=== PATIENT | male | born 1930 | race Hispanic/Latino ===

== ENCOUNTER 2018-05-31 16:30 | Emergency (ER) | payer MEDICARE, OTHER ==
--- NOTE | 2018-05-31 17:13 | RAD ---
RADIOGRAPH CHEST 1 VIEW: HISTORY: An 88-year-old male with syncope and collapse. FINDINGS: There are no air space densities, pulmonary edema, pneumothorax, or cardiomegaly. The lateral costop hrenic angles are sharp. IMPRESSION: No acute cardiopulmonary findings. jn [] POS: NESSA
[2018-05-31 17:39] LABS: #Eosinphils 0.1 thou/uL (0.0-0.7); #Lymphocytes 0.9 thou/uL (1.20-3.40); #Monocytes 0.7 thou/uL (0.11-0.59); #Neutrophils 8.3 thou/uL (1.40-6.50); %Basophils 0.1 % (0.0-1.0); %Eosinophils 0.6 % (0.0-10.0); %Lymphocytes 8.8 % (21.0-51.0); %Monocytes 7.5 % (0.0-10.0); %Neutrophils 83.1 % (42.0-75.0); Hemoglobin 14.1 g/dL (14.0-18.0); Mean Corpuscular Hemoglobin 30.8 pg (27.0-31.0); Mean Corpuscular Volume 93.2 fL (78.0-98.0); Mean Platelet Volume 7.6 fL (7.4-10.4); Platelet Count 213 thou/uL (130-400); RBC Distribution Width 12.3 % (11.5-14.5); Red Blood Cell (RBC) Count 4.59 mill/uL (4.70-6.10)
[2018-05-31 17:50] LABS: ALT (SGPT) 11 U/L (8-55); AST (SGOT) 14 U/L (5-34); Albumin 4.1 g/dL (3.4-4.8); Alkaline Phosphatase 51 U/L (40-150); Anion Gap 14 mmol/L (10-20); BUN (Urea Nitrogen) 16 mg/dL (8.4-25.7); Bilirubin, Total 0.8 mg/dL (0.2-1.2); Calc. Creatinine Clearance 0 mL/min (70-130); Calcium 8.7 mg/dL (7.8-10.44); Carbon Dioxide 23 mmol/L (23-31); Chloride 105 mmol/L (98-107); Estimated GFR-MDRD 43; Globulin 2.4 g/dL (2.4-3.5); Glucose 139 mg/dL (83-110); Potassium 4.8 mmol/L (3.5-5.1); Protein, Total 6.5 g/dL (5.8-8.1); Sodium 137 mmol/L (136-145)
--- NOTE | 2018-05-31 18:19 | CT ---
CT BRAIN NONCONTRAST: HISTORY: An 88-year-old male with altered mental status, unresponsive, dizziness, lightheadedness, nausea and vomiting. FINDINGS: There is no midline shift or any other mass effect. There is no evidence of acute intracranial hemor rhage, large cortical infarct, obstructive hydrocephalus, or extraaxial fluid collection. The calvar ium is intact. There is diffuse parenchymal volume loss. There are low attenuation areas in the whi te matter. These are nonspecific, but in a patient of this age, they are probably chronic ischemic w sara matter changes due to microvascular atherosclerosis. IMPRESSION: 1) No acute intracranial findings. 2) Involutional changes and chronic ischemic white matter changes. jn [] POS: NSESA
[2018-05-31 19:06] LABS: Bilirubin Negative (Negative); Blood, Urine Negative (Negative); Clarity CLEAR (Clear); Glucose, Urine (Dipstick) Negative (Negative); Leukocyte Negative (Negative); Nitrite Negative (Negative); Protein, Urine (Dipstick) Negative (Neg-Trace); Specific Gravity, Urine 1.014 (1.002-1.036)
== END 2018-05-31 23:18 | disposition home or self-care (01) ==
LOC: ERS 16:30
DX: I95.1 Orthostatic hypotension (principal); E78.5 Hyperlipidemia, unspecified; I10 Essential (primary) hypertension; M10.9 Gout, unspecified
CPT/HCPCS: 36415; 36416; 70450; 71045; 80053; 81003; 84484; 85025; 85379; 93005; 94760; 96360; 96361

== ENCOUNTER 2018-06-18 11:22 | Observation (INO) | payer MEDICARE, MEDICAID ==
[2018-06-18 12:08] LABS: #Eosinphils 0.1 thou/uL (0.0-0.7); #Lymphocytes 0.9 thou/uL (1.20-3.40); #Monocytes 0.9 thou/uL (0.11-0.59); #Neutrophils 5.9 thou/uL (1.40-6.50); %Basophils 0.2 % (0.0-1.0); %Eosinophils 1.4 % (0.0-10.0); %Lymphocytes 11.9 % (21.0-51.0); %Monocytes 11.1 % (0.0-10.0); %Neutrophils 75.5 % (42.0-75.0); Hemoglobin 14.4 g/dL (14.0-18.0); Mean Corpuscular HGB CONC 32.7 g/dL (32.0-36.0); Mean Corpuscular Hemoglobin 30.3 pg (27.0-31.0); Mean Corpuscular Volume 92.6 fL (78.0-98.0); Mean Platelet Volume 7.6 fL (7.4-10.4); Platelet Count 229 thou/uL (130-400); RBC Distribution Width 12.8 % (11.5-14.5); Red Blood Cell (RBC) Count 4.74 mill/uL (4.70-6.10); White Blood Cell (WBC) Count 7.8 thou/uL (4.8-10.8)
[2018-06-18 12:28] LABS: ALT (SGPT) 16 U/L (8-55); AST (SGOT) 21 U/L (5-34); Albumin 4.3 g/dL (3.4-4.8); Alkaline Phosphatase 67 U/L (40-150); Anion Gap 14 mmol/L (10-20); BUN (Urea Nitrogen) 34 mg/dL (8.4-25.7); Bilirubin, Total 0.7 mg/dL (0.2-1.2); Calc. Creatinine Clearance 0 mL/min (70-130); Calcium 8.8 mg/dL (7.8-10.44); Carbon Dioxide 22 mmol/L (23-31); Chloride 101 mmol/L (98-107); Estimated GFR-MDRD 38; Globulin 2.6 g/dL (2.4-3.5); Glucose 110 mg/dL (83-110); Protein, Total 6.9 g/dL (5.8-8.1); Sodium 132 mmol/L (136-145)
[2018-06-18 12:29] LABS: Acetaminophen Less than 6.0 mcg/mL (10.0-30.0); Alcohol Less than 10 mg/dL (Less than 10); Salicylate Less than 8.0 mg/dL (15.0-30.0)
--- NOTE | 2018-06-18 13:08 | CT ---
HEAD CT NONCONTRAST: COMPARISON: 05/31/2018. INDICATION: Altered mental status. FINDINGS: There is mild parenchymal volume loss. Mild to moderate chronic microvascular ischemic disease is pr esent. Stable prominence of CSF at the posterior fossa may relate to pat cisterna magna. IMPRESSION: No acute intracranial hemorrhage or mass effect. POS: NESSA
[2018-06-18 13:25] LABS: Bilirubin Negative (Negative); Blood, Urine Negative (Negative); Clarity CLEAR (Clear); Glucose, Urine (Dipstick) Negative (Negative); Leukocyte Negative (Negative); Nitrite Negative (Negative); Protein, Urine (Dipstick) Negative (Neg-Trace); Specific Gravity, Urine 1.011 (1.002-1.036)
[2018-06-18 13:38] LABS: Amphetamine Not Detected (NotDetected); Barbiturates Screen Not Detected (NotDetected); Benzodiazepine Screen Not Detected (NotDetected); Cocaine Metabolite Screen Not Detected (NotDetected); Medtox Control Line Valid? VALID (VALID); Medtox Reader # READER 1; Methadone Not Detected (NotDetected); Methamphetamine Not Detected (NotDetected); Opiate Screen Not Detected (NotDetected); Oxycodone Screen Not Detected (NotDetected); Phencyclidine (PCP) Not Detected (NotDetected); THC/Cannabinoid Screen Not Detected (NotDetected); Tricyclic Screen Not Detected (NotDetected)
[2018-06-18] MEDS ORDERED: Aspirin Chewable 81 MG TAB ONE (14:39)
[2018-06-18] MEDS ORDERED: Senokot S 8.6-50 MG TAB PO PRN (16:47)
[2018-06-18] MEDS ORDERED: Acetaminophen 325 MG TAB PO PRN (16:47)
[2018-06-18 17:47] VITALS: BMI 29.0
--- NOTE | 2018-06-18 18:34 | HP ---
PRIMARY CARE PHYSICIAN: Dr. Hanson. CHIEF COMPLAINT: Altered mental status. HISTORY OF PRESENT ILLNESS: Mr. Quintero is a very pleasant 88-year-old male, who presented to the emergency room today at [facility] for altered mental status. Evidently, he was driving in his car this morning around [place], was stopped by police for erratic driving. He reports police sent him to the emergency room to be evaluated. On exam, the patient reports that he was driving, try to find his daughter's or his son's house and got lost. It is unsure of why he was looking for them. Per EMS, he is altered from baseline. The patient reported to the ED physician that he was tired and hungry, has not eaten or drank much today. ER reports that his thoughts were not fluent. He denied any headache, vision changes, chest pain, or shortness of breath. It is unaware of what medication he takes, but he does report taking something for his blood pressure. In the emergency room, he was A and O x0. On exam for admission, he was A and O x2. He can tell me his name, date, he knew where he was, he knew how he got there, remembered events from this morning. His daughter, Sharri, was contacted. Reports that he has been having episodes of more forgetfulness in the last month, goes to see Dr. Hanson, has not been hospitalized either here or at [facility] since 2016. Does report a history of a pulmonary embolism in 2015 and does have an IVC filter. Reports that he has been unwilling to have somebody come in and help him. Reports that he is lonely. Did report that he called her early this morning at 6:30 as he wants to go to the [facility], when she told him that they were not open. He asked for a doctor's visit because he said he did not feel right. He denies any pain. He denies any headache. Daughter does report that he has been to the emergency room a couple of times for fainting. Reports that he does not eat or drink well. They gave him some IV fluids, given something to eat. He feels better and he goes home. Based on altered mental status changes and history, he will be admitted to the observation unit for further management. PAST MEDICAL HISTORY: Per daughter; hypertension, pulmonary embolism, IVC filter, and last discharge summary from this facility September of 2014. He had been admitted for syncope, aortic stenosis, acute gout, iron deficiency anemia, coronary artery disease, multiple gastric arteriovenous malformations, and chronic kidney disease stage 3. He was admitted in September of 2014 for a syncopal episode. He did not receive any anticoagulation in the hospital because when he had an IVC filter into, because he has multiple gastric and duodenal AV malformations and chronic kidney disease. Per [facility] and P in 2015 has a history of chronic systolic heart failure with an ejection fraction of 25%, history of pulmonary embolism, reflux, and dyslipidemia. PAST SURGICAL HISTORY: Includes coronary artery bypass grafting and IVC filter placement. ALLERGIES: UNKNOWN. HOME MEDICATIONS: The patient was unable to provide a list. Family was also unable to provide a list. When we obtain these, they will be updated. SOCIAL HISTORY: He currently lives at home alone. Does have family support. Denies any alcohol, drugs, or smoking. FAMILY HISTORY: Unknown. REVIEW OF SYSTEMS: The patient denied any complaints other than feeling disoriented and confused this morning. Denies anything further. All other systems are reviewed and are negative unless mentioned in the HPI. PHYSICAL EXAMINATION: VITAL SIGNS: Blood pressure 145/77, pulse 87, respirations 18, PO2 is 100% on room air, and temperature is 98.2. CONSTITUTIONAL: The patient appears nontoxic, appears pain free. He is presently confused. HEENT: Head is atraumatic and normocephalic. Eyes; eyelids are normal to inspection. Pupils are equal, round, and reactive to light. There is nystagmus horizontal present. ENT, mucous membranes are moist. Mouth exam is normal. The patient has no teeth present. NECK: Trachea is midline. No JVD is noted. RESPIRATORY: Breath sounds are clear. No signs of respiratory distress. CARDIOVASCULAR: Regular rate and rhythm. Heart sounds are normal. ABDOMEN: Nontender. Bowel sounds are heard. BACK: Normal inspection. No CVA tenderness. EXTREMITIES: Upper extremities, inspection is normal. Radial pulses equal bilaterally. Motor strength is normal. Lower extremities, inspection is normal. Pedal pulses normal bilaterally. Motor strength is normal. NEURO: The patient is awake, verbally responsive. Does answer questions and does follow commands, is aware of the events leading up to presentation to the emergency room. There is no slurred speech. There is no focal motor or sensory deficits. There are no cerebral deficits noted. SKIN: Normal dry in color. Left lower leg is discolored and is larger in size than right. Per the patient and the patient's daughter, this is potentially normal. LABORATORY DATA: EKG in the ER shows a normal sinus rhythm, beats per minute is 71, conduction is normal ST segments, T-waves are normal, axis is normal, does have first-degree AV block. Pertinent labs; white blood cell count is 7.8, hemoglobin 14.4, hematocrit 43.9, and platelet count is 229. Chemistry; sodium was 132, potassium 5.0, chloride 101, carbon dioxide 22, BUN is 34, creatinine is 1.71, estimated GFR is 38, glucose is 110, and calcium is 8.8. Liver enzymes are unremarkable. First 2 troponins are in the undetectable range. Urine is negative. Toxicology for urine is also negative. Plasma alcohol is less than 10. Brain CT, which shows no acute intracranial hemorrhage or mass effect. ASSESSMENT AND PLAN: 1. Altered mental status of unclear etiology. We will obtain an MRI of the brain. Do an echocardiogram, especially in light of the fact the last 1 is documented as low at 15% to 20%. Carotid Dopplers as left leg is discolored and larger than the right. We will obtain an ultrasound of the left lower extremity. 2. We will provide gentle hydration. We will order normal saline at 75 mL/hour. The patient is mildly hyponatremic. 3. Chronic kidney disease. This appears stable. We will monitor. 4. History of hypertension. Once we obtain the patient's home medication list, we will review and restart as needed. 5. Deep venous thrombosis prophylaxis. The patient does have an inferior vena cava filter. We will apply ANGELA hose. 6. Gastrointestinal prophylaxis will be started. 7. History of anemia. We will order iron studies while the patient is admitted. 8. Hospital course will be dependent on clinical findings. Job ID: [id number]
[2018-06-18] MEDS: Sodium Chloride 0.9% 1,000 ML IV SCH (19:00)
[2018-06-18] MEDS ORDERED: Famotidine 20 MG TAB PO SCH (21:00)
--- NOTE | 2018-06-18 22:16 | ULT ---
LEFT LOWER EXTREMITY VENOUS DUPLEX ULTRASOUND INCLUDING COLOR AND SPECTRAL DOPPLER IMAGIN06/18/18 HISTORY: Left lower extremity discoloration and swelling and edema. History of prior DVT. Exam performed from groin to ankle including visualized greater saphenous, common femoral, superficia l femoral, profunda femoral, popliteal, trifurcation, and posterior tibial vein regions. There is pha sic flow at all levels with normal compressibility and normal augmentation. There is mural thrombus n oted at the level of the proximal left superficial femoral vein with some venous luminal narrowing, b ut no evidence of occlusion. There is phasic flow beyond this level. This has more the appearance of old scarring. IMPRESSION: Small focus of mural-like intraluminal thrombus involving the left proximal superficial femoral vein with some minimal luminal narrowing but certainly no evidence for occlusion. There is phasic flow bey ond this level down the left lower extremity. I favor this being old scarring from previous DVT, but certainly given this, the patient would be at a higher risk for redeveloping acute DVT. If that remai ns a clinical concern, then I would certainly suggest short term followup imaging. No convincing evid ence for acute DVT at this time. POS: NESSA
--- NOTE | 2018-06-18 22:21 | ULT ---
BILATERAL CAROTID VASCULAR DUPLEX INCLUDING COLOR AND SPECTRAL DOPPLER IMAGIN06/18/18 HISTORY: Altered mental status. There is visual plaque noted bilaterally. PSV right ICA 93 cm/s. EDV 17 cm/s. ICA/CCA ratio 0.9. PSV left ICA 85 cm/s. EDV 10 cm/s. ICA/CCA ratio of 0.8. Right vertebral flow is antegrade. Left vertebral was not adequately seen. IMPRESSION: Bilateral visual plaque, evidence for atherosclerotic vascular disease. No hemodynamically significan t stenosis. POS: MARIA VICTORIA
[2018-06-19 03:49] LABS: #Eosinphils 0.1 thou/uL (0.0-0.7); #Lymphocytes 1.1 thou/uL (1.20-3.40); #Monocytes 0.9 thou/uL (0.11-0.59); #Neutrophils 3.8 thou/uL (1.40-6.50); %Basophils 0.1 % (0.0-1.0); %Eosinophils 2.4 % (0.0-10.0); %Lymphocytes 18.3 % (21.0-51.0); %Monocytes 14.5 % (0.0-10.0); %Neutrophils 64.7 % (42.0-75.0); Hemoglobin 13.9 g/dL (14.0-18.0); Mean Corpuscular HGB CONC 33.1 g/dL (32.0-36.0); Mean Corpuscular Hemoglobin 30.8 pg (27.0-31.0); Mean Corpuscular Volume 93.1 fL (78.0-98.0); Mean Platelet Volume 7.5 fL (7.4-10.4); Platelet Count 191 thou/uL (130-400); RBC Distribution Width 12.8 % (11.5-14.5); Red Blood Cell (RBC) Count 4.51 mill/uL (4.70-6.10); White Blood Cell (WBC) Count 5.9 thou/uL (4.8-10.8)
[2018-06-19 04:08] LABS: ALT (SGPT) 13 U/L (8-55); AST (SGOT) 16 U/L (5-34); Albumin 3.8 g/dL (3.4-4.8); Alkaline Phosphatase 57 U/L (40-150); Anion Gap 10 mmol/L (10-20); BUN (Urea Nitrogen) 28 mg/dL (8.4-25.7); Bilirubin, Total 0.4 mg/dL (0.2-1.2); Calc. Creatinine Clearance 37 mL/min (70-130); Calcium 8.8 mg/dL (7.8-10.44); Carbon Dioxide 25 mmol/L (23-31); Chloride 104 mmol/L (98-107); Estimated GFR-MDRD 42; Globulin 2.4 g/dL (2.4-3.5); Glucose 159 mg/dL (83-110); Iron 50 ug/dL (65-175); Iron Binding Capacity, Total 301 mcg/dL (261-462); Potassium 4.5 mmol/L (3.5-5.1); Protein, Total 6.2 g/dL (5.8-8.1); Sodium 134 mmol/L (136-145)
[2018-06-19 04:21] LABS: Ferritin 16.78 ng/mL (22-322)
[2018-06-19 04:22] LABS: Vitamin D, 25 Hydroxy 8.7 ng/ml (> 30.0)
[2018-06-19] MEDS: Sodium Chloride 0.9% 1,000 ML IV SCH (07:34)
[2018-06-19] MEDS ORDERED: hydrALAZINE 20 MG/ML VIAL SLOW IVP PRN (07:46)
[2018-06-19] MEDS ORDERED: cloNIDine 0.1 MG TAB PO PRN (07:46)
[2018-06-19 08:14] LABS: Cardiac Risk 3.1 (Less than 4.5)
[2018-06-19] MEDS ORDERED: Lisinopril 2.5 MG TAB PO SCH (09:00)
[2018-06-19] MEDS ORDERED: Finasteride 5 MG TAB PO SCH (09:00)
[2018-06-19] MEDS ORDERED: Non-Formulary Item 1 EACH (Ranitidine Hcl [Ranitidine Hcl] 300 MG) PO SCH (09:00)
[2018-06-19] MEDS ORDERED: Prevnar 13-Val Conj/PF 0.5 ML SYRINGE IM ONE (09:00)
--- NOTE | 2018-06-19 10:10 | PDOC.PN ---
- Subjective Encounter Start Date: 06/19/18 Encounter Start Time: 09:30 Subjective: Examined this morning, was standing on the side of the bed -: Denies complaints, denies remembering see this provider yesterday -: A&O x2, remembered some events from yesterday - Objective Resuscitation Status - Order Detail: 06/18/18 16:47 Resuscitation Status Routine Co-Sign Provider: Resuscitation Status: FULL: Full Resuscitation Discussed with: patient Vital Signs & Weight: Vital Signs (12 hours) Temp Pulse Resp BP BP Pulse Ox 06/19/18 09:22 90 195/93 H 06/19/18 07:50 97.5 F L 90 20 195/93 H 94 L 06/19/18 04:00 97.5 F L 79 19 156/76 H 96 06/19/18 00:00 97.3 F L 87 19 163/79 H 96 Weight Weight 76.884 kg I&O: 06/18/18 06/19/18 06/20/18 06:59 06:59 06:59 Intake Total 1240 Balance 1240 Result Diagrams: 06/19/18 03:40 06/19/18 03:40 Phys Exam - Physical Examination Constitutional: NAD HEENT: PERRLA, moist MMs No teeth in oral cavity Neck: no nodes, no JVD Cardiovascular: no significant murmur Gastrointestinal: soft, non-tender Musculoskeletal: no edema, pulses present Neurological: non-focal, normal sensation Oriented x2, knew he was in a hospital, did not know where. Could recall some of the events from yesterday, knew names of his children Lymphatic: no nodes Psychiatric: normal affect, A&O x 3 Skin: no rash, normal turgor, cap refill <2 seconds Dx/Plan (1) Altered mental status, unspecified Code(s): R41.82 - ALTERED MENTAL STATUS, UNSPECIFIED Status: Acute (2) Aortic stenosis Code(s): I35.0 - NONRHEUMATIC AORTIC (VALVE) STENOSIS Status: Chronic (3) Chronic kidney disease (CKD) stage G3a/A1, moderately decreased glomerular filtration rate (GFR) between 45-59 mL/min/1.73 square meter and albuminuria creatinine ratio less than 30 mg/g Code(s): N18.3 - CHRONIC KIDNEY DISEASE, STAGE 3 (MODERATE) Status: Chronic - Plan cont current plan of care Waiting MRI and Echo results -: Mentation appears better today -: Will continue to monitor labs/VS, watch BP -: Will discuss with Dr. Morales * .
--- NOTE | 2018-06-19 11:41 | MRI ---
MRI OF BRAIN PERFORMED WITHOUT CONTRAST ENHANCEMENT: Date: 06/19/18 HISTORY: Altered mental status. COMPARISON: CT examination done yesterday. FINDINGS: There is generalized ventricular and sulcal prominence. There is increased signal change on the T2 an d FLAIR sequences within the white matter consistent with some chronic ischemic white matter change. No hemorrhage visualized on the gradient sequence. No evidence of any acute infarct. Mastoid air cells and visualized sinuses appear clear. IMPRESSION: Atrophy and chronic white matter change. No acute intracranial abnormalities. POS: MARIA VICTORIAH
[2018-06-19 15:57] VITALS: BP 128/71; TEMP 98.3
[2018-06-19] MEDS ORDERED: Atorvastatin Calcium 20 MG TAB PO SCH (21:00)
--- NOTE | 2018-06-20 06:02 | DIS ---
DATE OF ADMISSION: 06/18/2018 DATE OF DISCHARGE: 06/19/2018 PRIMARY CARE PHYSICIAN: Dr. Hanson. CONSULTANTS: None. PROCEDURES: The patient had a brain CT, which showed no acute intracranial hemorrhage or mass effect. The patient had a carotid Doppler study which showed bilateral visual plaque evidence of vascular disease. No hemodynamically significant stenosis. The patient had an ultrasound of the left leg, which showed a small focus of mural like intraluminal left proximal superficial femoral vein with minimal luminal narrowing. Certainly, no evidence for occlusion. Phasic flow beyond this level lower extremity favor being old scarring from a previous DVT. The patient does have an IVC filter in place. Short-term followup imaging recommended. Dr. Hanson has concern for developing DVT. The patient had an echocardiogram with an LVEF estimated at 50% to 55%, fihv-on-sissyfrb mitral regurgitation, moderate aortic regurgitation, pbzh-ax-zgabueic aortic stenosis, vtvi-[id number]-uxrpkuxq tricuspid regurgitation. Brain MRI which showed atrophy and chronic white matter change. No acute intracranial abnormalities. HOSPITAL COURSE: Mr. Quintero is a very pleasant 88-year-old male, who reported to the emergency room on 06/18/2018 via EMS after police pulled him over for erratic driving. The patient appeared altered. Initially was A and O x0, knew his name per ED MD. On admission, the patient was A and O x3, knew his name, date, names of his children, was not exactly sure where he was. This morning when he was examined, he knew he was in the hospital, but did not know which one. Recall most of the events from the previous day, although does not remember being visited by the provider. Urine-drug screen was negative. Plasma alcohol was 10, ammonia 26. The patient was admitted to the observation Stroke Unit for further management. Additional tests were ordered and resulted as above. The patient remained stable. Per discussion with multiple family members, the patient appears at baseline mentation currently. Family reports that his mentation dips some when he becomes dehydrated. Typically, he goes to the emergency room, get fluids and goes home. Assistance from family members received with mixed reaction from the patient. Discussion today with family about taking away car keys and this was agreed upon. Home health will be started here, to be followed up with Dr. Hanson's office on Thursday. The patient remained stable. The patient discharged to home with family. He should follow up with Dr. Hanson within one week. DISCHARGE DIAGNOSES: 1. Encephalopathy, etiology most likely dehydration, appears at baseline today per family. 2. Dehydration. 3. Hyperlipidemia. 4. Hypertension. 5. Iron-deficient anemia. 6. Low vitamin D. 7. Gastroesophageal reflux disease. REVIEW OF SYSTEMS: The patient was examined this morning. The patient appeared in no distress. The patient denied any complaints. Denied any chest pain, shortness of breath, or dizziness, was able to answer all questions appropriately. All other systems reviewed and are negative unless mentioned in the hospital course. PHYSICAL EXAMINATION: VITAL SIGNS: Temperature 97.5, respirations 19, pulse is 79, pulse ox is 96% on room air, and blood pressure 156/76. CONSTITUTIONAL: The patient appears nontoxic, appears pain-free. HEENT: Head is atraumatic and normocephalic. Eyelids are normal to inspection. Pupils are equal, round, reactive to light. Mouth exam without dentition, otherwise, mucous membranes are moist. NECK: Trachea is midline. No JVD is noted at neck. RESPIRATORY: Breath sounds are clear. No signs of respiratory distress. CARDIOVASCULAR: Regular rate and rhythm. Heart sounds are normal. ABDOMEN: Nontender. Bowel sounds are heard. BACK: Normal inspection. No CVA tenderness. EXTREMITIES: Upper extremities, inspection is normal, radial pulses equal bilaterally, motor strength is normal, sensation is intact. Lower extremities, inspection is normal, pedal pulses are equal bilaterally, motor strength is normal, sensation intact. NEURO: The patient is awake, verbally responsive, and answers questions appropriately, is oriented to person and place, although he does not know which hospital he is in. Speech is normal. Neuro exam is normal. No focal motor or sensory deficits. ALLERGIES: NONE. MEDICATIONS: We restarted the medications; 1. Atorvastatin 20 mg p.o. daily. 2. Finasteride 5 mg p.o. daily. 3. Ranitidine 300 mg p.o. daily. 4. Lisinopril 2.5 mg p.o. daily. 5. We will start the patient on vitamin D 2000 units p.o. daily. 6. Ferrous sulfate 325 mg p.o. b.i.d. CONDITION: Stable. The patient will be discharged home. FOLLOW UP: The patient is to follow up with Dr. Hanson within one week. Job ID: [id number]
== END 2018-06-19 19:01 | disposition home or self-care (01) ==
LOC: ERS 11:22 → 2SE 15:37
PROVIDERS: ADMIT Internal Medicine; ATTEND Internal Medicine
DX: G93.40 Encephalopathy, unspecified (principal); E86.0 Dehydration; I13.0 Hypertensive heart and chronic kidney disease with heart failure and stage 1 through stage 4 chronic kidney disease, or unspecified chronic kidney disease; I50.22 Chronic systolic (congestive) heart failure; N18.3 Chronic kidney disease, stage 3 (moderate); I35.0 Nonrheumatic aortic (valve) stenosis; D50.9 Iron deficiency anemia, unspecified; E55.9 Vitamin D deficiency, unspecified; I25.10 Atherosclerotic heart disease of native coronary artery without angina pectoris; I34.0 Nonrheumatic mitral (valve) insufficiency; I36.1 Nonrheumatic tricuspid (valve) insufficiency; M10.9 Gout, unspecified; Q27.33 Arteriovenous malformation of digestive system vessel; Z86.711 Personal history of pulmonary embolism; Z95.1 Presence of aortocoronary bypass graft; Z79.899 Other long term (current) drug therapy; Z86.718 Personal history of other venous thrombosis and embolism
CPT/HCPCS: 70450; 70551; 80053 ×2; 80061; 80306; 80307; 81003; 82140; 82306; 82607; 82728; 83540; 83550; 84484 ×2; 85025 ×2; 90670; 93005; 93306; 93880; 93971; 96361 ×2; 96374; 97139; 99285; G0009; G0378 ×2; 36415; 90471; J0360

== ENCOUNTER 2019-09-12 11:58 | Inpatient (IN) | payer MEDICARE, MEDICAID ==
[~2019-09-12 11:58] MED LIST: Iopamidol-370 76% 500 ML 1 ML ONE
[2019-09-12] MEDS ORDERED: Ondansetron PF 4 MG/2 ML Vial ONE (12:21)
[2019-09-12] MEDS ORDERED: Morphine 4 MG/ML VIAL ONE (12:21)
[2019-09-12] MEDS ORDERED: Pantoprazole 40 MG VIAL ONE (12:21)
[2019-09-12] MEDS ORDERED: Lorazepam 2 MG/ML VIAL ONE (12:21)
--- NOTE | 2019-09-12 12:39 | RAD ---
Chest one view HISTORY: Chest pain. Altered mental status. GI bleed. COMPARISON: 05/31/2018. FINDINGS: Cardiac silhouette is magnified by projection. Patient is rotated rightward. Oblique predominantly vertically oriented longitudinal lucency projecting over the left chest is favo red to represent an extrinsic artifact. No lobar consolidation or free subdiaphragmatic gas. adolescent psychiatrist leads overlie the chest. IMPRESSION : Atherosclerosis. No active cardiopulmonary abnormalities are otherwise demonstrated.
[2019-09-12 12:57] LABS: #Lymphocytes 0.7 thou/uL (1.20-3.40); #Monocytes 0.8 thou/uL (0.11-0.59); #Neutrophils 15.2 thou/uL (1.40-6.50); %Basophils 0.2 % (0.0-1.0); %Eosinophils 0.1 % (0.0-10.0); %Lymphocytes 4.4 % (21.0-51.0); %Monocytes 4.7 % (0.0-10.0); %Neutrophils 90.6 % (42.0-75.0); Hemoglobin 13.6 g/dL (14.0-18.0); Mean Corpuscular HGB CONC 33.1 g/dL (32.0-36.0); Mean Corpuscular Hemoglobin 33.3 pg (27.0-31.0); Mean Platelet Volume 8.1 fL (7.4-10.4); Platelet Count 178 thou/uL (130-400); RBC Distribution Width 12.6 % (11.5-14.5); Red Blood Cell (RBC) Count 4.08 mill/uL (4.70-6.10); White Blood Cell (WBC) Count 16.8 thou/uL (4.8-10.8)
[2019-09-12 13:18] LABS: ALT (SGPT) Less than 7 U/L (8-55); AST (SGOT) 11 U/L (5-34); Albumin 3.7 g/dL (3.4-4.8); Alkaline Phosphatase 66 U/L (40-110); Anion Gap 17 mmol/L (10-20); BUN (Urea Nitrogen) 30 mg/dL (8.4-25.7); Bilirubin, Total 1.1 mg/dL (0.2-1.2); CK (CPK) 43 U/L (30-200); Calc. Creatinine Clearance 0 mL/min (70-130); Carbon Dioxide 24 mmol/L (23-31); Chloride 107 mmol/L (98-107); Estimated GFR-MDRD 55; Globulin 2.6 g/dL (2.4-3.5); Glucose 134 mg/dL (83-110); Lipase 13 U/L (8-78); Potassium 4.4 mmol/L (3.5-5.1); Protein, Total 6.3 g/dL (5.8-8.1); Sodium 144 mmol/L (136-145)
[2019-09-12 13:37] LABS: Bilirubin Negative (Negative); Blood, Urine Trace (Negative); Clarity Clear (Clear); Glucose, Urine (Dipstick) Normal (Negative); Leukocyte 500 Leu/uL (Negative); Nitrite 2+ (Negative); Protein, Urine (Dipstick) 20 mg/dL (Neg-Trace); RBC/HPF 0-3 HPF (0-3); Squamous Epithelial None Seen HPF (0-3); Urobilinogen Normal mg/dL (Less than 2); WBC/HPF 21-50 HPF (0-3)
[2019-09-12 13:38] LABS: Bacteria/HPF Rare-Few HPF (None Seen)
[2019-09-12] MEDS ORDERED: Cefepime 2 GM VIAL ONE (13:48)
[2019-09-12] MEDS ORDERED: Vancomycin 1 GM/200 ML BAG ONE (14:10)
--- NOTE | 2019-09-12 14:53 | CT ---
CT arteriogram chest with IV contrast and 3-D imaging HISTORY: Chest pain. Dyspnea. COMPARISON: 10/11/2014. FINDINGS: There is good contrast opacification of the pulmonary arteries and thoracic aorta with norm al branching of the great vessels at the aortic arch. Calcification throughout the arterial structures. Partial consolidation of the posterior basilar segment left lower lobe. Mild atelectasis at the right posterior lung base. No pleural fluid or pneumothorax. Nonenlarged, nonspecific lymph nodes are present throughout the med iastinum. Postoperative changes mediastinum are also evident. Ossification anterior longitudinal ligament of the thoracic spine is consistent with diffuse idiopath ic skeletal hyperostosis. Hyperdense stones present within the gallbladder lumen. IMPRESSION : No CT evidence of pulmonary embolus. Subsegmental consolidation at the left posterior lung base. Clinical correlation regarding other sign s and symptoms of pneumonitis (possibly aspiration) is required. Prominent atherosclerosis. Cholelithiasis.
--- NOTE | 2019-09-12 15:06 | CT ---
CT ABDOMEN AND PELVIS WITH IV CONTRAST 09/12/2019 CLINICAL INFORMATION: Coffee-ground emesis. Abdominal pain. COMPARISON: 10/11/2014. Technique: Multiple contiguous axial CT images are obtained through the abdomen and pelvis with IV contrast. Cor onal reformatted images are provided. FINDINGS: Lower Chest: Postoperative changes related to CABG. There is thickening of the distal most esophagus greater posteriorly. Tiny bilateral pleural effusions are present with focal area of consolidation seen in the left lower lobe with adjacent increased interstitial opacities. Findings are worrisome for infectious process/pneumonia versus aspiration pneumonitis. Follow-up to resolution is recommended. Vessels: Vascular calcifications are seen in the coronary arteries as well as involving the abdominal aorta and iliac arteries with curvilinear calcifications seen in the infrarenal abdominal aorta which was also present on the prior exam; this may represent either a focal dissection or eccentric a therosclerotic plaque. IVC filter is again noted in place. Abdomen: Portal vein:Patent Gallbladder: Decompressed with gallbladder calculus again seen. Liver: A few calcified granulomata are visualized. Liver otherwise has a normal CT appearance. Spleen: within normal limits. Pancreas: within normal limits. Adrenals: within normal limits. Kidneys: Minimal areas of scarring are again seen in each kidney. Previously seen left renal cysts ar e again noted. Bowel: Colonic diverticulosis is present. Small amount retained fecal material is seen throughout the colon. Loops of small bowel are normal in caliber. Appendix: The appendix is visualized and normal in caliber. Peritoneum: No ascites or free air; no fluid collection. Mesentery and Retroperitoneum: No enlarged mesenteric or retroperitoneal lymph nodes. Abdominal Wall: within normal limits. Pelvis: Reproductive Organs: No pelvic masses. Pelvis within normal limits. Bladder: There is lobulated thickening involving the olmedo of the urinary bladder. Urinary bladder is incompletely distended. However, the degree of thickening of the urinary bladder wall is more than expected for incomplete distention. No perivesicular inflammatory changes are seen. However, cystitis in the correct clinical scenario is a possibility. Bones: Degenerative changes are seen in the spine, and there is calcification of the anterior longitu dinal ligament involving the lower thoracic and upper lumbar spine. Small fat-containing bilateral inguinal canals are present. IMPRESSION: 1. Consolidation left lung base worrisome for aspiration pneumonitis versus pneumonia. Follow-up to c omplete resolution is recommended. 2. Tiny bilateral pleural effusions. 3. Thickening of the visualized distal esophagus. Findings could be related to esophagitis, but direc t visualization would be helpful for further evaluation. Thickening of the olmedo of the urinary bladder which is more than typically expected for incomplete distention. Cystitis is a possibility in the correct clinical scenario. 5. Colonic diverticulosis. 6. Dense vascular calcifications. 7. Cholelithiasis.
[2019-09-12 15:44] LABS: Lactic Acid 1.5 mmol/L (0.5-2.2)
[2019-09-12] MEDS ORDERED: Ondansetron ODT 4 MG TAB SL PRN (17:39)
[2019-09-12] MEDS ORDERED: Ondansetron PF 4 MG/2 ML Vial IVP PRN ×2 (17:39→18:26)
[2019-09-12] MEDS ORDERED: Sodium Chloride 0.9% 1,000 ML IV SCH (17:39)
[2019-09-12] MEDS ORDERED: Acetaminophen 325 MG TAB PO PRN (18:26)
[2019-09-12] MEDS ORDERED: Ondansetron ODT 4 MG TAB PO PRN (18:26)
[2019-09-12] MEDS ORDERED: Senokot S 8.6-50 MG TAB PO PRN (18:26)
[2019-09-12] MEDS ORDERED: Senokot 8.6 MG TAB PO PRN (18:50)
[2019-09-12] MEDS ORDERED: Milk Of Magnesia 30 ML UDCUP PO PRN (18:50)
[2019-09-12] MEDS ORDERED: Acetaminophen 500 MG TAB PO PRN (18:50)
--- NOTE | 2019-09-12 19:09 | PDOC.HHP ---
Hospitalist HPI - History of Present Illness drowsiness and confusion History of Present Illness: The H&P is based on report from ED and EMR since the patient is not verbal on encounter and cannot reach family by phone. Mr. Quintero is an 89yo longterm resident M w/ MHx of DVT, COPD (IVF in place ), multiple gastric and duodenal AVMs, Aoric stenosis who presents for drowsiness and confusion. Patient presented from longterm, where he reportedly had 2 x coffee ground emesis and was less responsive and talkative this morning. Appears that yesterday, he was at baseline. On encounter, patient lying in bed, appears in no distress but occasionally moans. Could not elicit ROS ED Course: In the ED, was found to be GCS 9, elevated white count and neutrophilia, pyuria , and CXR suggestive of pneumonia. FOBT and CTPE were negative. He was admitted to the telemetry floor for further management Hospitalist ROS - Review of Systems ROS unobtainable: due to mental status Hospitalist History - Past Medical History Source: old records (hypertension, pulmonary embolism, IVC filter, and last discharge summary from this facility September of 2014. He had been admitted for syncope, aortic stenosis, acute gout, iron deficiency anemia, coronary artery disease, multiple gastric arteriovenous malformations, and chronic kidney disease stage 3. He was admitted in September of 2014 for a syncopal episode. He did not receive any anticoagulation in the hospital because when he had an IVC filter into, because he has multiple gastric and duodenal AV malformations and chronic kidney disease. Per H and P in 2015 has a history of chronic systolic heart failure with an ejection fraction of 25%, history of pulmonary embolism, reflux, and dyslipidemia. PAST SURGICAL HISTORY: Includes coronary artery bypass grafting and IVC filter placement. ALLERGIES: UNKNOWN. HOME MEDICATIONS: The patient was unable to provide a list. Family was also unable to provide a list. When we obtain these, they will be updated. SOCIAL HISTORY: He currently lives at home alone. Does have family support. Denies any alcohol, drugs, or smoking. FAMILY HISTORY: Unknown.) - Exam General Appearance: ill appearing Eye: PERRL. negative: anicteric sclera ENT: normocephalic atraumatic, moist mucosa Neck: no JVD Heart: RRR, no murmur, no gallops, no rubs Respiratory: CTAB, no wheezes, no rales, no ronchi Gastrointestinal: soft, non-tender, non-distended, normal bowel sounds Extremities - other findings: RLE: pitting edema up to knee level; LLE - no edema;bl hand osteoarthritis Skin - other findings: blanching decubial erythema Neurological - other findings: drowsy; exhibits resistance when attempting to pull hand; Hospitalist Results - Labs Result Diagrams: 09/12/19 12:42 09/12/19 12:42 Lab results: WBC 16.8 thou/uL (4.8-10.8) H 09/12/19 12:42 Hgb 13.6 g/dL (14.0-18.0) L 09/12/19 12:42 Hct 41.1 % (42.0-52.0) L 09/12/19 12:42 MCV 101.0 fL (78.0-98.0) H 09/12/19 12:42 Plt Count 178 thou/uL (130-400) 09/12/19 12:42 Neutrophils % 90.6 % (42.0-75.0) H 09/12/19 12:42 Sodium 144 mmol/L (136-145) 09/12/19 12:42 Potassium 4.4 mmol/L (3.5-5.1) 09/12/19 12:42 Chloride 107 mmol/L (98-107) 09/12/19 12:42 Carbon Dioxide 24 mmol/L (23-31) 09/12/19 12:42 BUN 30 mg/dL (8.4-25.7) H 09/12/19 12:42 Creatinine 1.25 mg/dL (0.7-1.3) 09/12/19 12:42 Glucose 134 mg/dL (83-110) H 09/12/19 12:42 Lactic Acid 1.5 mmol/L (0.5-2.2) 09/12/19 15:20 Calcium 9.0 mg/dL (7.8-10.44) 09/12/19 12:42 Total Bilirubin 1.1 mg/dL (0.2-1.2) 09/12/19 12:42 AST 11 U/L (5-34) 09/12/19 12:42 ALT Less than 7 U/L (8-55) L 09/12/19 12:42 Alkaline Phosphatase 66 U/L (40-110) 09/12/19 12:42 Creatine Kinase 43 U/L (30-200) 09/12/19 12:42 B-Natriuretic Peptide 739.7 pg/mL (0-100) H 09/12/19 13:15 Serum Total Protein 6.3 g/dL (5.8-8.1) 09/12/19 12:42 Albumin 3.7 g/dL (3.4-4.8) 09/12/19 12:42 Lipase 13 U/L (8-78) 09/12/19 12:42 Urine Ketones Negative mg/dL (Negative) 09/12/19 13:22 Urine Blood Trace (Negative) A 09/12/19 13:22 Urine Nitrite 2+ (Negative) A 09/12/19 13:22 Ur Leukocyte Esterase 500 Leopoldo/uL (Negative) A 09/12/19 13:22 Urine RBC 0-3 HPF (0-3) 09/12/19 13:22 Urine WBC 21-50 HPF (0-3) A 09/12/19 13:22 Ur Squamous Epith Cells None Seen HPF (0-3) 09/12/19 13:22 Urine Bacteria Rare-Few HPF (None Seen) 09/12/19 13:22 - EKG Interpretation EKG: sinus, 1st degree block Hospitalist H&P A/P - Problem (1) Community acquired pneumonia Code(s): J18.9 - PNEUMONIA, UNSPECIFIED ORGANISM Status: Acute (2) Urinary tract infection Status: Acute (3) Infectious encephalopathy Code(s): G93.49 - OTHER ENCEPHALOPATHY; B99.9 - UNSPECIFIED INFECTIOUS DISEASE Status: Acute (4) Chronic kidney disease (CKD) stage G3a/A1, moderately decreased glomerular filtration rate (GFR) between 45-59 mL/min/1.73 square meter and albuminuria creatinine ratio less than 30 mg/g Code(s): N18.3 - CHRONIC KIDNEY DISEASE, STAGE 3 (MODERATE) Status: Chronic - Plan Plan: #infectious encephalopathy #complicated UTI #CAP -febrile on presentation, neurophilic -UA and CXR c/w source for infectious encephalopathy -CTPE negative for PE -started on ceftriaxone and doxycycline -pending infectious workup -gentle fluids considering #history of PE and DVT -most likely has DVT considering physical exam, history and IVF placement -history of gastric and duodenal AVMs therefore not on anticoag #CKD 3 -at baseline dispo/ppx DNAR GI PPx: no indication DVT PPx: no indication
[2019-09-12] MEDS: Dextrose 5 % And 0.9 % NaCl 1,000 ML IV SCH (20:26)
[2019-09-12] MEDS ORDERED: Doxycycline 100 MG in Syringe 0 ML IVPB SCH (21:00)
[2019-09-12] MEDS: Benztropine 1 MG TAB PO SCH (22:04)
[2019-09-12] MEDS: Carvedilol 3.125 MG TAB PO SCH (22:05)
[2019-09-12] MEDS: Ferrous Sulfate 325 MG TAB PO SCH (22:05)
[2019-09-12] MEDS: Gabapentin 300 MG CAP PO SCH (22:06)
[2019-09-12] MEDS: RisperDAL M-TAB 1 MG TAB PO SCH (22:06)
[2019-09-12] MEDS: levETIRAcetam 500 MG TAB PO SCH (22:06)
[2019-09-12] MEDS: cefTRIAXone\\ROCEPHIN 1 GM in Sodium Chloride 0.9% 100 ML IVPB SCH (22:10)
[2019-09-12 22:17] VITALS: BMI 24.5
[2019-09-13 04:26] LABS: #Lymphocytes 0.8 thou/uL (1.20-3.40); #Monocytes 0.7 thou/uL (0.11-0.59); #Neutrophils 10.4 thou/uL (1.40-6.50); %Eosinophils 0.1 % (0.0-10.0); %Lymphocytes 6.9 % (21.0-51.0); %Monocytes 6.1 % (0.0-10.0); %Neutrophils 86.9 % (42.0-75.0); Hemoglobin 11.4 g/dL (14.0-18.0); Mean Corpuscular HGB CONC 32.2 g/dL (32.0-36.0); Mean Corpuscular Hemoglobin 32.2 pg (27.0-31.0); Mean Platelet Volume 7.6 fL (7.4-10.4); Platelet Count 143 thou/uL (130-400); RBC Distribution Width 12.3 % (11.5-14.5); Red Blood Cell (RBC) Count 3.55 mill/uL (4.70-6.10); White Blood Cell (WBC) Count 11.9 thou/uL (4.8-10.8)
[2019-09-13 05:11] LABS: Anion Gap 9 mmol/L (10-20); BUN (Urea Nitrogen) 23 mg/dL (8.4-25.7); Calc. Creatinine Clearance 48 mL/min (70-130); Calcium 8.2 mg/dL (7.8-10.44); Carbon Dioxide 25 mmol/L (23-31); Chloride 112 mmol/L (98-107); Estimated GFR-MDRD 66; Glucose 119 mg/dL (83-110); Potassium 3.7 mmol/L (3.5-5.1); Sodium 142 mmol/L (136-145)
[2019-09-13] MEDS: Benztropine 1 MG TAB PO SCH ×2 (08:28→20:38)
[2019-09-13] MEDS: Finasteride 5 MG TAB PO SCH (08:28)
[2019-09-13] MEDS: RisperDAL M-TAB 1 MG TAB PO SCH ×2 (08:28→20:39)
[2019-09-13] MEDS: Ferrous Sulfate 325 MG TAB PO SCH ×2 (08:28→20:38)
[2019-09-13] MEDS: Gabapentin 300 MG CAP PO SCH ×2 (08:28→20:38)
[2019-09-13] MEDS: Carvedilol 3.125 MG TAB PO SCH ×2 (08:28→20:48)
[2019-09-13] MEDS: levETIRAcetam 500 MG TAB PO SCH ×2 (08:32→20:38)
[2019-09-13] MEDS ORDERED: Prevnar 13-Val Conj/PF 0.5 ML SYRINGE IM ONE (09:00)
[2019-09-13] MEDS: Dextrose 5 % And 0.9 % NaCl 1,000 ML IV SCH ×2 (15:03→20:48)
[2019-09-13] MEDS: cefTRIAXone\\ROCEPHIN 1 GM in Sodium Chloride 0.9% 100 ML IVPB SCH (20:50)
--- NOTE | 2019-09-13 21:06 | PDOC.HOSPP ---
- Subjective Encounter Date: 09/13/19 Encounter Time: 10:00 Subjective: no overnight events. This morning, more alert and converses with nurse in slovenian though remains confused. could not elicit ROS - Objective Vital Signs & Weight: Vital Signs (12 hours) Temp Pulse Pulse Pulse Resp BP BP 09/13/19 18:17 89 87 162/69 H 150/69 H 09/13/19 15:10 97.8 F 70 16 09/13/19 11:09 97.8 F 79 16 BP Pulse Ox 09/13/19 18:17 09/13/19 15:10 161/84 H 97 09/13/19 11:09 139/95 H 97 Weight Admit Weight 151 lb 11.2 oz Weight 152 lb I&O: 09/12/19 09/13/19 09/14/19 06:59 06:59 06:59 Intake Total 700 900 Output Total 950 Balance 700 -50 Result Diagrams: 09/13/19 04:18 09/13/19 04:18 Hospitalist ROS - Review of Systems ROS unobtainable: due to mental status - Medication Medications: Active Medications Generic Name Dose Route Start Last Admin Trade Name Freq PRN Reason Stop Dose Admin Benztropine Mesylate 0.5 mg 09/12/19 21:00 09/13/19 20:38 Cogentin PO 0.5 mg BID ANDREA Administration Carvedilol 3.125 mg 09/12/19 21:00 09/13/19 20:48 Coreg PO 3.125 mg BID ANDREA Administration Ferrous Sulfate 325 mg 09/12/19 21:00 09/13/19 20:38 Feosol PO 325 mg BID ANDREA Administration Finasteride 5 mg 09/13/19 09:00 09/13/19 08:28 Proscar PO 5 mg DAILY ANDREA Administration Gabapentin 300 mg 09/12/19 21:00 09/13/19 20:38 Neurontin PO 300 mg BID ANDREA Administration Ceftriaxone Sodium 1 gm/ 100 mls @ 200 mls/hr 09/12/19 20:00 09/13/19 20:50 Sodium Chloride IVPB 100 mls Q24HR ANDREA Administration Doxycycline Hyclate 100 mg/ 100 mls @ 100 mls/hr 09/12/19 21:00 09/13/19 20: 39 Sodium Chloride IVPB 100 mls Q12HR ANDREA Administration Dextrose/Sodium Chloride 1,000 mls @ 75 mls/hr 09/12/19 19:30 09/13/19 20:48 D5 0.9% Ns IV 1,000 mls .[id number] ANDREA Administration Levetiracetam 250 mg 09/12/19 21:00 09/13/19 20:38 Keppra PO 250 mg BID ANDREA Administration Risperidone 1 mg 09/13/19 09:00 09/13/19 08:28 Risperdal M-Tab PO 1 mg DAILY ANDREA Administration Risperidone 2 mg 09/12/19 21:00 09/13/19 20:39 Risperdal M-Tab PO 2 mg HS ANDREA Administration - Exam General Appearance: NAD Eye: PERRL Heart: RRR, no murmur, no gallops, no rubs, normal peripheral pulses Respiratory: CTAB, no wheezes, no rales, no ronchi, normal chest expansion, no tachypnea, normal percussion Gastrointestinal: soft, non-tender, non-distended, normal bowel sounds, no palpable masses, no hepatomegaly, no splenomegaly, no bruit Hosp A/P (1) Community acquired pneumonia Code(s): J18.9 - PNEUMONIA, UNSPECIFIED ORGANISM Status: Acute (2) Urinary tract infection Status: Acute (3) Infectious encephalopathy Code(s): G93.49 - OTHER ENCEPHALOPATHY; B99.9 - UNSPECIFIED INFECTIOUS DISEASE Status: Acute (4) Chronic kidney disease (CKD) stage G3a/A1, moderately decreased glomerular filtration rate (GFR) between 45-59 mL/min/1.73 square meter and albuminuria creatinine ratio less than 30 mg/g Code(s): N18.3 - CHRONIC KIDNEY DISEASE, STAGE 3 (MODERATE) Status: Chronic - Plan #CAP #complicated UTI -continue ABx pending infectious workup -called family to update regarding condition #urinary retention -PVR > 400 -place carney
[2019-09-14] MEDS: Benztropine 1 MG TAB PO SCH ×2 (09:54→21:14)
[2019-09-14] MEDS: levETIRAcetam 500 MG TAB PO SCH ×2 (09:59→21:16)
[2019-09-14] MEDS: Finasteride 5 MG TAB PO SCH (09:59)
[2019-09-14] MEDS: RisperDAL M-TAB 1 MG TAB PO SCH ×2 (09:59→21:16)
[2019-09-14] MEDS: Carvedilol 3.125 MG TAB PO SCH ×2 (10:00→21:15)
[2019-09-14] MEDS: Gabapentin 300 MG CAP PO SCH ×2 (10:00→21:15)
[2019-09-14] MEDS: Tamsulosin HCl 0.4 MG CAP PO SCH (10:00)
[2019-09-14] MEDS: Ferrous Sulfate 325 MG TAB PO SCH ×2 (10:00→21:15)
[2019-09-14] MEDS: Dextrose 5 % And 0.9 % NaCl 1,000 ML IV SCH (12:39)
--- NOTE | 2019-09-14 14:24 | EKG ---
Test Reason : Blood Pressure : / mmHG Vent. Rate : 096 BPM Atrial Rate : 096 BPM P-R Int : 252 ms QRS Dur : 088 ms QT Int : 368 ms P-R-T Axes : 072 087 072 degrees QTc Int : 464 ms Sinus rhythm with 1st degree A-V block Low voltage QRS Borderline ECG Confirmed by NADINE DAVIDSON, ELSA ([id number]), order editor DAKOTAH MORALES ([id number]) on 09/14/2019 2:23:33 PM Referred By: Confirmed By:ELSA MCCOY MD
[2019-09-14] MEDS: cefTRIAXone\\ROCEPHIN 1 GM in Sodium Chloride 0.9% 100 ML IVPB SCH (21:13)
--- NOTE | 2019-09-14 22:32 | PDOC.HOSPP ---
- Subjective Encounter Date: 09/14/19 Encounter Time: 09:00 Subjective: no overnight events. this morning, more alert and talkative. - Objective Vital Signs & Weight: Vital Signs (12 hours) Temp Pulse Pulse Pulse Resp BP BP 09/14/19 16:00 97.4 F L 75 16 09/14/19 14:01 75 69 142/109 H 174/76 H 09/14/19 12:30 97.9 F 75 16 BP Pulse Ox 09/14/19 16:00 151/74 H 100 09/14/19 14:01 09/14/19 12:30 130/60 99 Weight Admit Weight 151 lb 11.2 oz Weight 154 lb 9.6 oz I&O: 09/13/19 09/14/19 09/15/19 06:59 06:59 06:59 Intake Total 700 1800 1150 Output Total 1450 450 Balance 700 350 700 Result Diagrams: 09/13/19 04:18 09/13/19 04:18 Hospitalist ROS - Review of Systems Constitutional: denies: chills, sweats Respiratory: denies: cough, dry, shortness of breath Cardiovascular: denies: chest pain, palpitations, orthopnea Gastrointestinal: denies: nausea, vomiting, abdominal pain - Medication Medications: Active Medications Generic Name Dose Route Start Last Admin Trade Name Freq PRN Reason Stop Dose Admin Benztropine Mesylate 0.5 mg 09/12/19 21:00 09/14/19 21:14 Cogentin PO 0.5 mg BID ANDREA Administration Carvedilol 3.125 mg 09/12/19 21:00 09/14/19 21:15 Coreg PO 3.125 mg BID ANDREA Administration Ferrous Sulfate 325 mg 09/12/19 21:00 09/14/19 21:15 Feosol PO 325 mg BID ANDREA Administration Finasteride 5 mg 09/13/19 09:00 09/14/19 09:59 Proscar PO 5 mg DAILY ANDREA Administration Gabapentin 300 mg 09/12/19 21:00 09/14/19 21:15 Neurontin PO 300 mg BID ANDREA Administration Ceftriaxone Sodium 1 gm/ 100 mls @ 200 mls/hr 09/12/19 20:00 09/14/19 21:13 Sodium Chloride IVPB 100 mls Q24HR ANDREA Administration Doxycycline Hyclate 100 mg/ 100 mls @ 100 mls/hr 09/12/19 21:00 09/14/19 21: 15 Sodium Chloride IVPB 100 mls Q12HR ANDREA Administration Dextrose/Sodium Chloride 1,000 mls @ 75 mls/hr 09/12/19 19:30 09/14/19 12:39 D5 0.9% Ns IV 1,000 mls .[id number] ANDREA Administration Levetiracetam 250 mg 09/12/19 21:00 09/14/19 21:16 Keppra PO 250 mg BID ANDREA Administration Risperidone 1 mg 09/13/19 09:00 09/14/19 09:59 Risperdal M-Tab PO 1 mg DAILY ANDREA Administration Risperidone 2 mg 09/12/19 21:00 09/14/19 21:16 Risperdal M-Tab PO 2 mg HS ANDREA Administration Tamsulosin HCl 0.4 mg 09/14/19 09:00 09/14/19 10:00 Flomax PO 0.4 mg DAILY ANDREA Administration - Exam General Appearance: NAD, awake alert Neck: no JVD Heart: RRR, no murmur, no gallops Respiratory: CTAB, no wheezes, no rales Gastrointestinal: soft, non-tender, non-distended Extremities - other findings: LLE pitting edema Psychiatric: oriented to person. negative: oriented to place, oriented to time Hosp A/P (1) Community acquired pneumonia Code(s): J18.9 - PNEUMONIA, UNSPECIFIED ORGANISM Status: Acute (2) Urinary tract infection Status: Acute (3) Infectious encephalopathy Code(s): G93.49 - OTHER ENCEPHALOPATHY; B99.9 - UNSPECIFIED INFECTIOUS DISEASE Status: Acute (4) Chronic kidney disease (CKD) stage G3a/A1, moderately decreased glomerular filtration rate (GFR) between 45-59 mL/min/1.73 square meter and albuminuria creatinine ratio less than 30 mg/g Code(s): N18.3 - CHRONIC KIDNEY DISEASE, STAGE 3 (MODERATE) Status: Chronic - Plan #CAP #complicated UTI -continue ABx pending infectious workup #urinary retention -PVR > 400 -continue carney -carney trial tomorrow pending possible discharge
[2019-09-15] MEDS: Dextrose 5 % And 0.9 % NaCl 1,000 ML IV SCH ×2 (02:15→12:00)
--- NOTE | 2019-09-15 07:59 | ULT ---
ULTRASOUND DOPPLER DUPLEX VENOUS BILATERAL LOWER EXTREMITIES: DATE: 09/15/2019 HISTORY: Bilateral lower extremity edema in 89-year-old male. Dr. Whitlock reported the positive finding of bilateral lower extremity DVT by telephone to nurse Kassy Montgomery at 7:52 AM 09/15/2019 TECHNIQUE: Grayscale, color-flow, and spectral analysis, of the bilateral common femoral, profunda femoral, grea ter saphenous, femoral, popliteal, and posterior tibial, veins. FINDINGS: Right side: There is thrombus causing noncompressibility throughout all interrogated veins of the entire right lo wer extremity. There is flow in the right common femoral vein. There is no flow in some of the other veins, and little flow in others. Left side: There is thrombus in the left common femoral vein, distal portion of left femoral vein, left poplitea l vein, and left greater saphenous vein. There is decreased blood flow in the distal portion of left femoral vein and popliteal vein. There is flow in the other veins. IMPRESSION: Positive for deep venous thrombosis extensively throughout the bilateral lower extremities
[2019-09-15] MEDS: Benztropine 1 MG TAB PO SCH (09:26)
[2019-09-15] MEDS: Tamsulosin HCl 0.4 MG CAP PO SCH (09:27)
[2019-09-15] MEDS: RisperDAL M-TAB 1 MG TAB PO SCH (09:27)
[2019-09-15] MEDS: Finasteride 5 MG TAB PO SCH (09:27)
[2019-09-15] MEDS: Carvedilol 3.125 MG TAB PO SCH (09:27)
[2019-09-15] MEDS: Gabapentin 300 MG CAP PO SCH (09:27)
[2019-09-15] MEDS: levETIRAcetam 500 MG TAB PO SCH (09:27)
[2019-09-15] MEDS: Ferrous Sulfate 325 MG TAB PO SCH (09:27)
[2019-09-15 15:47] VITALS: TEMP 98.6
[2019-09-15 17:34] VITALS: BP 189/74
--- NOTE | 2019-09-16 06:12 | PQF ---
ÁLVARO OCHOA Yue ALEXANDERBANSilvina, ARTURO [id number] CLINICAL DOCUMENTATION CLARIFICATION FORM: POST DISCHARGE Addendum to original discharge summary date: ____ Late entry note date: __ DATE: 10/15/19 ATTN: Arturo Molina Please exercise your independent, professional judgment in responding to the clarification form. Clinical indicators are provided on the bottom of this form for your review Can you please further clarify if Sepsis is ruled in or ruled out? Sepsis [ ] Ruled in diagnosis [ ] Continue to treat [ ] Resolved [ x ] Ruled out diagnosis [ ] Cannot rule out diagnosis [ ] Other diagnosis [ ] Unable to determine In addition, please specify: Present on Admission (POA): [ ] Yes [ x ] No [ ] Unable to determine For continuity of documentation, please document condition throughout progress notes and discharge summary. Thank You. CLINICAL INDICATORS - SIGNS / SYMPTOMS / LABS ED Provider pg.1- He is tachy and then spike a fever here ED Provider pg.3- Sepsis H and P pg.1- drowsiness and confusion ED Provider pg.1- VS Temp: 100, RR 15, pulse 91, BP 132/70 Laboratory- WBC 16.8H, 11.9H Labs Lactate: 09/11=2.9 Collected 09/11 Blood culture: No growth at 48 hrs RISK FACTORS 89 years old- H and P pg.1 COPD- H and P pg.1 Pneumonia- H and P pg.3 UTI- H and P pg.3 Dementia ED Notes p1 09/11 CKD- H and P pg.1 TREATMENTS Chest X ray 09/11 Chest/Thorax CTA 09/11 Abdomen/Pelvis CT 09/11 IV fluids- MAR Blood culture- Microbiology Cefepime 2gm IV- MAR Vancomycin 1gm- IV MAR (This form is maintained as a part of the permanent medical record) 2014 [employer]. All Rights Reserved [email or web address]
--- NOTE | 2019-09-16 12:40 | DIS ---
DATE OF ADMISSION: 09/12/2019 DATE OF DISCHARGE: 09/15/2019 HOSPITAL COURSE: Mr. Quintero is an 89-year-old longterm resident with medical history of DVT, COPD, multiple gastric and duodenal AVMs, and aortic stenosis, who presented with drowsiness and confusion. He was diagnosed with community-acquired pneumonia and complicated urinary tract infection. He was treated with antibiotics for 3 days and improved back to his baseline mentation state. He was discharged to continue antibiotics for complicated UTI to complete treatment for a total of 7 days. PHYSICAL EXAMINATION: VITAL SIGNS: Blood pressure 157/67, heart rate 76, respiratory rate 14, oxygen saturation 93% on room air, temperature 98.6 Fahrenheit. GENERAL: No apparent distress. Awake and alert. NECK: No JVD. HEART: Regular rate and rhythm. No murmur. No gallops. RESPIRATORY: Clear to auscultation bilaterally. No wheezes. No rales. GASTROINTESTINAL: Soft, nontender, nondistended. EXTREMITIES: Left lower extremity pitting edema. The patient has a history of DVT and an IVC filter in place. PSYCHIATRIC: Oriented to person, not to place or to time, which is his baseline. DISCHARGE MEDICATIONS: New medications: 1. Tamsulosin. 2. Levofloxacin. Continued medications: 1. Finasteride. 2. Ferrous sulfate. 3. . 4. Acetaminophen. 5. Risperidone. 6. Magnesium hydroxide. 7. Levetiracetam. 8. Gabapentin. 9. Famotidine. 10. Carvedilol. 11. Benztropine. Modified medications: None. Job ID: [id number]
--- NOTE | 2019-09-16 20:41 | PQF ---
ÁLVARO OCHOA ADI [id number] [facility]-291 [id number] CLINICAL DOCUMENTATION CLARIFICATION FORM: POST DISCHARGE Addendum to original discharge summary date: ____ Late entry note date: __ not understanding reason for this query. The diagnosis was stated in the H&P as "infectious encephalopathy," as you noted DATE: 09/16/19 ATTN: Baldo Molina Please exercise your independent, professional judgment in responding to the clarification form. Clinical indicators are provided on the bottom of this form for your review Please check appropriate box(s): [ ] Acute Metabolic Encephalopathy [ ] Acute Toxic Encephalopathy [ x ] Acute Infectious Encephalopathy [ ] Other diagnosis please specify [ ] Unable to determine In addition, please specify: Present on Admission (POA): [ x ] Yes [ ] No [ ] Unable to determine For continuity of documentation, please document condition throughout progress notes and discharge summary. Thank You. CLINICAL INDICATORS - SIGNS / SYMPTOMS / LABS H and P pg.1- in the ED he was found to be in GCS of 9 H and P pg.3- "Infectious encephalopathy" ED Provider pg.1- He is tachy and then spike a fever here H and P pg.1- drowsiness and confusion ED Provider pg.1- VS Temp: 100, RR 15, pulse 91, BP 132/70 Laboratory- WBC 16.8H, 11.9H H and P pg.2- "ROS unable to obtain due to metal status" RISK FACTORS 89 years old- H and P pg.1 COPD- H and P pg.1 Pneumonia- H and P pg.3 UTI- H and P pg.3 HTN- H and P pg.1 CKD 3- H and P pg.2 CHF- H and P pg.1 TREATMENTS: Cefepime 2gm IV- MAR Vancomycin 1gm- IV MAR IV fluids- MAR Chest X ray 09/11 Chest/Thorax CTA09/11 Abdomen/Pelvis CT 09/11 (This form is maintained as a part of the permanent medical record) 2014 [employer]. All Rights Reserved [email or web address]
== END 2019-09-15 17:00 | DRG 689 ==
LOC: ERS 11:58 → 2NO 15:52
PROVIDERS: ADMIT Internal Medicine; ATTEND Internal Medicine
PROC: 0T9B70Z Drainage of Bladder with Drainage Device, Via Natural or Artificial Opening (ICD-10-PCS; principal; 2019-09-12)
DX: N39.0 Urinary tract infection, site not specified (principal); J18.9 Pneumonia, unspecified organism; G93.49 Other encephalopathy; E78.5 Hyperlipidemia, unspecified; Z66 Do not resuscitate; E78.00 Pure hypercholesterolemia, unspecified; M10.9 Gout, unspecified; F03.90 Unspecified dementia, unspecified severity, without behavioral disturbance, psychotic disturbance, mood disturbance, and anxiety; D50.9 Iron deficiency anemia, unspecified; I12.9 Hypertensive chronic kidney disease with stage 1 through stage 4 chronic kidney disease, or unspecified chronic kidney disease; N18.3 Chronic kidney disease, stage 3 (moderate); I25.10 Atherosclerotic heart disease of native coronary artery without angina pectoris; M19.042 Primary osteoarthritis, left hand; M19.041 Primary osteoarthritis, right hand; Z86.711 Personal history of pulmonary embolism; Z79.899 Other long term (current) drug therapy; Z86.718 Personal history of other venous thrombosis and embolism
CPT/HCPCS: 36415; 51701; 71045; 71275; 74177; 80048; 80053; 81003; 81015; 82274; 82550; 83605; 83690; 83880; 85025; 85379; 86850; 86900; 86901; 87040; 93005; 93970; 96361; 96365; 96366; 96375; C9113; J0692; J0696; J2060; J2270; J2405; J3370; J3490; Q9967